=== PATIENT | female | born 1945 | race Caucasian/White ===

== ENCOUNTER → 2016-05-21 | Outpatient (CLI) | payer OTHER ==
[~2016-05-21] MED LIST: ACETAMINOPHN-T1 EACH PO; ACTONEL35 MG PO; AGGRENOX1 CAPSULE PO; Aggrenox PO; COREG CR10 MG PO; COUMADIN,JANTOVE1 MG PO; CRESTOR20 MG PO; Ceftin PO; DEXAMETHASONE4 MG PO; ENABLEX7.5 MG PO; ENDOCET 5-3251 EACH PO; FENTANYL1 EAC5 TD; FLORICET PO; JANUMET 50/11 TABLET PO; LEXAPRO20 MG PO; LYRICA50 MG PO; NORCO 5/3251 TABLET PO; Nitrostat,NitroQuick SL; OXYCONTIN10 MG PO; PERCOCET 5/31 TABLET PO; PLATEL PO; PLETAL50 M2 PO; PLETAL50 MG PO; PROVENTIL,2.5 MG/0.5 IH; PROVENTIL,2.5 MG/3 M IH; PYRIDOXINE,VIT100 MG PO; Pletal PO; Reglan PO; SEROQUEL200 MG PO; Tylenol Regular Stre PO; Ultracet PO; VESICARE5 MG PO; VICODIN,LORT1 TABLET PO; VITAMIN B CO1 TABLET PO; Vitamin B Complex PO; Vitamin B-12 PO; ZANAFLEX2 M1 PO; ZANAFLEX4 MG PO; ZETIA10 MG PO
[2016-05-21 10:54] LABS: POINT-OF-CARE METER ID UU14174212
== END | disposition home or self-care (01) ==
LOC: OPR 09:50 → EDSTATUS 10:00 → OPR 10:00
PROVIDERS: Internal Medicine Hematology & Oncology
PROC: 0BBF3ZX Excision of Right Lower Lung Lobe, Percutaneous Approach, Diagnostic (ICD-10-PCS; principal; 2016-05-21)
DX: R91.8 Other nonspecific abnormal finding of lung field (principal); I25.10 Atherosclerotic heart disease of native coronary artery without angina pectoris; Z95.1 Presence of aortocoronary bypass graft
CPT/HCPCS: 71010; 77012; 82948; 88305; 88341 TC; 88342 TC; J3010

== ENCOUNTER → 2016-06-18 | Outpatient (CLI) | payer OTHER ==
[~2016-06-18] MED LIST changes: +FENTANYL1 EAC1 TD; +OXAYDO5 MG PO
[2016-06-18 09:27] LABS: HEMATOCRIT 52.5 % (36.0-46.0); MCH 30.4 PG (29.0-34.0); MCHC 34.5 G/DL (30.0-36.0); MCV 88.2 FL (83-99); MEAN PLAT.VOLUME 9.9 uM^3 (9.5-12.4); PLATELET COUNT 97 K/uL (156-360); RBC DIS.WIDTH-CV 16.6 % (11.8-14.6); RBC DIS.WIDTH-SD 52.6 % (39-53); RED BLOOD COUNT 5.95 M/uL (3.80-5.20)
[2016-06-18 09:40] LABS: INTER. NORMALIZED RATIO 1.1; PROTHROMBIN TIME 10.9 (9.2-11.2); PTT 27.3 (25-32)
== END | disposition home or self-care (01) ==
LOC: EDSTATUS 08:45 → OPR 08:45
PROVIDERS: Internal Medicine Hematology & Oncology
PROC: 0BBF3ZX Excision of Right Lower Lung Lobe, Percutaneous Approach, Diagnostic (ICD-10-PCS; principal; 2016-06-18)
DX: R91.8 Other nonspecific abnormal finding of lung field (principal)
CPT/HCPCS: 71010; 77012; 85027; 85610; 85730; 88305; J3010

== ENCOUNTER 2016-06-22 15:20 | Inpatient (IN) | payer OTHER ==
[~2016-06-22] VITALS: Ht 170.2 cm; Wt 83.0 kg
[2016-06-22 15:36] LABS: BASE EXCESS -3.5 mEq/L (-3 to +3); BICARBONATE 18.5 mEq/L (22-26); CARBOXY HGB 1.9 % (0-5); COMMENTS - BLOOD GASES C+A+; DEVICE NRBM; METHEMOGLOBIN 1.3 % (0-1.5); O2 FLOW 15 L/MIN; PCO2 26 mm Hg (35-45); PO2 104 mm Hg (80-100); SITE RR; pH 7.46 (7.35-7.45)
[2016-06-22 16:19] LABS: CHLORIDE 98 mEq/L (99-109); POTASSIUM 4.2 mEq/L (3.7-5.4); SODIUM 135 mEq/L (136-147)
[2016-06-22 16:20] LABS: GLUCOSE 137 mg/dL (70-99)
[2016-06-22 16:22] LABS: ANION GAP 18 MEQ/L (2-14)
[2016-06-22 16:24] LABS: GFR ESTIMATE (CALCULATED) 34 mL/min/
[2016-06-22 16:25] LABS: UREA NITROGEN (BUN) 40 mg/dL (9-23)
[2016-06-22 16:32] LABS: TROP-I INTERPRETATION NEGATIVE; TROPONIN-I 0.01 ng/mL (0.0-0.30)
[2016-06-22 16:41] LABS: HEMATOCRIT 46.4 % (36.0-46.0); HEMATOLOGY COMMENT 1 SMEAR COMPATIBLE; IMMATURE GRANULOCYTE (%) 0.5 % (0.0-0.7); LYMPHOCYTE COUNT 0.3 K/uL (1.0-2.8); MCHC 34.9 G/DL (30.0-36.0); MEAN PLAT.VOLUME 10.7 uM^3 (9.5-12.4); MONOCYTE (%) 11.4 % (3-12); MONOCYTE COUNT 0.5 K/uL (0-0.8); NEUTROPHIL (%) 79.7 % (45-76); NEUTROPHIL COUNT 3.2 K/uL (1.8-6.4); PLAT.SUFFICIENCY DECREASED; PLATELET COUNT 78 K/uL (156-360); RBC DIS.WIDTH-CV 16.4 % (11.8-14.6); RED BLOOD COUNT 5.58 M/uL (3.80-5.20)
[2016-06-22 16:52] LABS: MCV 83.2 FL (83-99); WHITE BLOOD COUNT 4.1 K/uL (4.1-10.2)
[2016-06-22] MEDS ORDERED: CILOSTAZOL100 MG PO (19:52)
[2016-06-22] MEDS ORDERED: ZANTAC150 MG PO (19:57)
[2016-06-22] MEDS ORDERED: NAMENDA10 MG PO (19:58)
[2016-06-22 22:00] VITALS: BP 101/58
[2016-06-22 23:27] LABS: ADD MIUA? YES; BILIRUBIN NEGATIVE; BLOOD LARGE; COLOR AMBER ((YELLOW)); GLUCOSE (STRIP) NEGATIVE; KETONES NEGATIVE; LEUKOCYTES NEGATIVE; NITRITE NEGATIVE; PROTEIN (STRIP) 100; SPECIFIC GRAVITY 1.018 (1.000-1.030); UROBILINOGEN 0.2 MG/DL (0.2-1.0)
[2016-06-22 23:37] VITALS: BP 138/63
[2016-06-22 23:39] LABS: BACTERIA 3+ /HPF; EPITHELIAL CELLS RARE /HPF; MUCUS 1+ /LPF; RED BLOOD CELLS 0-5 /HPF (0-5); UCUL ADDED? NO; WHITE BLOOD CELLS 0-5 /HPF (0-5)
[2016-06-23 04:12] VITALS: BP 110/55
[2016-06-23 12:00] LABS: HEMATOCRIT 39.8 % (36.0-46.0); MCH 28.5 PG (29.0-34.0); MCHC 33.4 G/DL (30.0-36.0); MCV 85.4 FL (83-99); RBC DIS.WIDTH-CV 16.4 % (11.8-14.6); RBC DIS.WIDTH-SD 50.3 % (39-53); RED BLOOD COUNT 4.66 M/uL (3.80-5.20); WHITE BLOOD COUNT 3.7 K/uL (4.1-10.2)
[2016-06-23 12:29] LABS: ANION GAP 9 MEQ/L (2-14); CHLORIDE 101 MEQ/L (99-109); GLUCOSE 223 mg/dL (70-99); POTASSIUM 3.6 MEQ/L (3.7-5.4); SAMPLE HEMOLYSIS CHECK 0; SAMPLE ICTERIC CHECK 0; SAMPLE LIPEMIA CHECK 0; SODIUM 130 MEQ/L (136-147); UREA NITROGEN (BUN) 29 mg/dL (9-23)
[2016-06-23 12:30] LABS: GFR ESTIMATE (CALCULATED) 52 mL/min/
[2016-06-23 12:32] LABS: EOSINOPHIL (%) 0.3 % (0-5); HEMATOLOGY COMMENT 1 SMEAR COMPATIBLE; IMMATURE GRANULOCYTE (%) 1.6 % (0.0-0.7); IMMATURE GRANULOCYTE COUNT 0.1 K/uL; LYMPHOCYTE COUNT 0.3 K/uL (1.0-2.8); MEAN PLAT.VOLUME 10.8 uM^3 (9.5-12.4); MONOCYTE (%) 0.5 % (3-12); NEUTROPHIL (%) 90.3 % (45-76); NEUTROPHIL COUNT 3.3 K/uL (1.8-6.4); PLAT.SUFFICIENCY DECREASED; PLATELET COUNT 58 K/uL (156-360); USER ID TLW
[2016-06-23 12:43] VITALS: BP 101/56
[2016-06-23 16:00] VITALS: BP 102/54
[2016-06-23 19:20] VITALS: BP 112/59
[2016-06-23 23:41] VITALS: BP 106/51
[2016-06-24 04:15] VITALS: BP 112/58
[2016-06-24 06:37] LABS: HEMATOCRIT 42.6 % (36.0-46.0); MCH 28.6 PG (29.0-34.0); MCHC 33.8 G/DL (30.0-36.0); MCV 84.5 FL (83-99); MEAN PLAT.VOLUME 10.7 uM^3 (9.5-12.4); PLATELET COUNT 54 K/uL (156-360); RBC DIS.WIDTH-CV 16.3 % (11.8-14.6); RBC DIS.WIDTH-SD 49.6 % (39-53); RED BLOOD COUNT 5.04 M/uL (3.80-5.20); WHITE BLOOD COUNT 3.5 K/uL (4.1-10.2)
[2016-06-24 06:51] LABS: ANION GAP 12 MEQ/L (2-14); CHLORIDE 100 MEQ/L (99-109); GFR ESTIMATE (CALCULATED) > 59 mL/min/; GLUCOSE 135 mg/dL (70-99); SAMPLE HEMOLYSIS CHECK 0; SAMPLE ICTERIC CHECK 0; SAMPLE LIPEMIA CHECK 0; SODIUM 133 MEQ/L (136-147); UREA NITROGEN (BUN) 23 mg/dL (9-23)
[2016-06-24 07:15] VITALS: BP 101/58
[2016-06-24 07:28] LABS: BASE EXCESS -1.6 mEq/L (-3 to +3); BICARBONATE 21.5 mEq/L (22-26); CARBOXY HGB 1.8 % (0-5); METHEMOGLOBIN 1.4 % (0-1.5); PCO2 31 mm Hg (35-45); PO2 113 mm Hg (80-100); pH 7.45 (7.35-7.45)
[2016-06-24 07:29] LABS: COMMENTS - BLOOD GASES A+C+; DEVICE NRBM; FI02 100 %; O2 FLOW 15 L/MIN; SITE RR
[2016-06-24 07:43] LABS: POINT-OF-CARE USER ID NUTSLF44
[2016-06-24 07:51] LABS: ABS NEUTROPHIL COUNT 3.25; ANISOCYTOSIS 1+; DELETE MACHINE DIFF? YES; MACROCYTES OCC; PLAT.SUFFICIENCY DECREASED; TARGET CELLS RARE; TEAR DROP CELLS OCC; USER ID TLW
[2016-06-24 07:52] LABS: GIANT PLATELETS RARE
[2016-06-24 11:51] LABS: POINT-OF-CARE USER ID NUTSLF44
[2016-06-24 12:19] VITALS: BP 82/52
[2016-06-24 15:53] VITALS: BP 114/57
[2016-06-24 19:20] VITALS: BP 106/57
[2016-06-25 00:20] VITALS: BP 128/68
[2016-06-25 04:20] VITALS: BP 95/51
[2016-06-25 06:53] LABS: HEMATOCRIT 36.8 % (36.0-46.0); MCH 29.3 PG (29.0-34.0); MCHC 34.8 G/DL (30.0-36.0); MCV 84.2 FL (83-99); MEAN PLAT.VOLUME 11.6 uM^3 (9.5-12.4); PLATELET COUNT 61 K/uL (156-360); RBC DIS.WIDTH-CV 16.2 % (11.8-14.6); RBC DIS.WIDTH-SD 49.5 % (39-53); RED BLOOD COUNT 4.37 M/uL (3.80-5.20)
[2016-06-25 07:23] LABS: ANION GAP 13 MEQ/L (2-14); CHLORIDE 99 MEQ/L (99-109); GFR ESTIMATE (CALCULATED) > 59 mL/min/; GLUCOSE 130 mg/dL (70-99); POTASSIUM 3.8 MEQ/L (3.7-5.4); SAMPLE HEMOLYSIS CHECK 0; SAMPLE ICTERIC CHECK 0; SAMPLE LIPEMIA CHECK 0; SODIUM 132 MEQ/L (136-147); UREA NITROGEN (BUN) 22 mg/dL (9-23)
[2016-06-25 07:49] LABS: HEMATOLOGY COMMENT 1 SMEAR COMPATIBLE; USER ID BLP
[2016-06-25 07:50] LABS: EOSINOPHIL (%) 0 % (0-5); IMMATURE GRANULOCYTE (%) 1.8 % (0.0-0.7); IMMATURE GRANULOCYTE COUNT 0.1 K/uL; LYMPHOCYTE COUNT 0.2 K/uL (1.0-2.8); MONOCYTE COUNT 0.1 K/uL (0-0.8); NEUTROPHIL (%) 90.1 % (45-76); NEUTROPHIL COUNT 3.6 K/uL (1.8-6.4)
[2016-06-25 08:00] VITALS: BP 123/66
[2016-06-25 08:02] LABS: POINT-OF-CARE METER ID UU14174216
[2016-06-25 11:32] VITALS: BP 119/58
[2016-06-25 12:39] LABS: POINT-OF-CARE METER ID UU14174216
[2016-06-25 16:28] VITALS: BP 120/58
[2016-06-25 16:57] LABS: POINT-OF-CARE METER ID UU13113781
[2016-06-25 19:20] VITALS: BP 103/56
[2016-06-26 00:20] VITALS: BP 110/59
[2016-06-26 04:00] VITALS: BP 119/53
[2016-06-26 07:02] VITALS: BP 100/55
[2016-06-26 11:48] VITALS: BP 109/58
[2016-06-26 16:46] VITALS: BP 134/72
[2016-06-26 21:00] VITALS: BP 105/55
[2016-06-27] VITALS (7 sets, daily range): BP systolic 73–137; BP diastolic 50–73
[2016-06-27 07:21] LABS: HEMATOCRIT 38.1 % (36.0-46.0); MCH 29.9 PG (29.0-34.0); MCHC 35.7 G/DL (30.0-36.0); MCV 83.7 FL (83-99); RBC DIS.WIDTH-CV 16.2 % (11.8-14.6); RBC DIS.WIDTH-SD 49.1 % (39-53); RED BLOOD COUNT 4.55 M/uL (3.80-5.20); WHITE BLOOD COUNT 4.1 K/uL (4.1-10.2)
[2016-06-27 07:43] LABS: ANION GAP 14 MEQ/L (2-14); CHLORIDE 96 MEQ/L (99-109); GFR ESTIMATE (CALCULATED) > 59 mL/min/; GLUCOSE 117 mg/dL (70-99); POTASSIUM 3.5 MEQ/L (3.7-5.4); SAMPLE HEMOLYSIS CHECK 0; SAMPLE ICTERIC CHECK 0; SAMPLE LIPEMIA CHECK 0; SODIUM 133 MEQ/L (136-147); UREA NITROGEN (BUN) 17 mg/dL (9-23)
[2016-06-27 07:57] LABS: POINT-OF-CARE METER ID UU13113698; POINT-OF-CARE USER ID ENVKC36
[2016-06-27 08:32] LABS: ABS NEUTROPHIL COUNT 3.73; ANISOCYTOSIS OCC; EOSINOPHIL (%) 0.2 % (0-5); IMMATURE GRANULOCYTE (%) 6.5 % (0.0-0.7); IMMATURE GRANULOCYTE COUNT 0.3 K/uL; LYMPHOCYTE COUNT 0.3 K/uL (1.0-2.8); MEAN PLAT.VOLUME 11.6 uM^3 (9.5-12.4); MONOCYTE (%) 3.9 % (3-12); MONOCYTE COUNT 0.2 K/uL (0-0.8); NEUTROPHIL (%) 82.4 % (45-76); NEUTROPHIL COUNT 3.4 K/uL (1.8-6.4); PLAT.SUFFICIENCY DECREASED; PLATELET COUNT 47 K/uL (156-360); USER ID CL
[2016-06-27 11:43] LABS: POINT-OF-CARE USER ID ENVKC36
[2016-06-27 16:49] LABS: POINT-OF-CARE USER ID ENVKC36
[2016-06-28] VITALS (8 sets, daily range): BP systolic 75–141; BP diastolic 52–81
[2016-06-28 07:51] LABS: ANION GAP 12 MEQ/L (2-14); CHLORIDE 97 MEQ/L (99-109); GFR ESTIMATE (CALCULATED) > 59 mL/min/; GLUCOSE 107 mg/dL (70-99); POTASSIUM 3.7 MEQ/L (3.7-5.4); SAMPLE HEMOLYSIS CHECK 0; SAMPLE ICTERIC CHECK 0; SAMPLE LIPEMIA CHECK 0; SODIUM 128 MEQ/L (136-147); UREA NITROGEN (BUN) 13 mg/dL (9-23)
[2016-06-28 08:09] LABS: POINT-OF-CARE METER ID UU14174216; POINT-OF-CARE USER ID NUTSLF44
[2016-06-28 11:27] LABS: POINT-OF-CARE USER ID NUTSLF44
[2016-06-28 17:49] LABS: POINT-OF-CARE USER ID NUTSLF44
[2016-06-29 01:52] LABS: POINT-OF-CARE METER ID UU13113725
[2016-06-29 03:03] VITALS: BP 114/60
[2016-06-29 06:07] LABS: POINT-OF-CARE METER ID UU13113725
[2016-06-29 07:02] LABS: HEMATOCRIT 36.4 % (36.0-46.0); MCH 28.9 PG (29.0-34.0); MCHC 34.3 G/DL (30.0-36.0); MCV 84.1 FL (83-99); RBC DIS.WIDTH-CV 15.9 % (11.8-14.6); RBC DIS.WIDTH-SD 48.5 % (39-53); RED BLOOD COUNT 4.33 M/uL (3.80-5.20); WHITE BLOOD COUNT 4.2 K/uL (4.1-10.2)
[2016-06-29 07:24] LABS: ANION GAP 13 MEQ/L (2-14); CHLORIDE 95 MEQ/L (99-109); GFR ESTIMATE (CALCULATED) > 59 mL/min/; GLUCOSE 92 mg/dL (70-99); POTASSIUM 3.3 MEQ/L (3.7-5.4); SAMPLE HEMOLYSIS CHECK 0; SAMPLE ICTERIC CHECK 0; SAMPLE LIPEMIA CHECK 0; SODIUM 129 MEQ/L (136-147); UREA NITROGEN (BUN) 9 mg/dL (9-23)
[2016-06-29 07:40] LABS: ABS NEUTROPHIL COUNT 4.05; ANISOCYTOSIS 1+; EOSINOPHIL (%) 0.5 % (0-5); IMMATURE GRANULOCYTE COUNT 0.3 K/uL; LYMPHOCYTE COUNT 0.3 K/uL (1.0-2.8); MONOCYTE (%) 3.3 % (3-12); MONOCYTE COUNT 0.1 K/uL (0-0.8); NEUTROPHIL COUNT 3.4 K/uL (1.8-6.4); OVALOCYTES RARE; PLAT.SUFFICIENCY DECREASED; PLATELET COUNT UNABLE TO REPORT K/uL (156-360); SPHEROCYTES RARE; TOXIC GRANULATION 1+
[2016-06-29 08:01] VITALS: BP 122/72
[2016-06-29 19:20] LABS: POINT-OF-CARE METER ID UU13113725
[2016-06-29 19:28] VITALS: BP 92/64
[2016-06-29 21:21] LABS: POINT-OF-CARE METER ID UU13113725
[2016-06-29 22:54] VITALS: BP 94/54
[2016-06-30 03:31] VITALS: BP 105/69
[2016-06-30 06:23] LABS: POINT-OF-CARE METER ID UU13113725
[2016-06-30 08:10] VITALS: BP 99/65
[2016-06-30 11:51] VITALS: BP 156/77
[2016-06-30 16:34] LABS: POINT-OF-CARE METER ID UU13113725
[2016-06-30 16:43] VITALS: BP 127/71
[2016-06-30 19:15] VITALS: BP 114/58
[2016-06-30 23:11] VITALS: BP 150/71
[2016-07-01 03:51] VITALS: BP 141/66
[2016-07-01 06:50] LABS: HEMATOCRIT 33.6 % (36.0-46.0); MCH 29.3 PG (29.0-34.0); MCHC 34.2 G/DL (30.0-36.0); MCV 85.5 FL (83-99); RBC DIS.WIDTH-CV 16.2 % (11.8-14.6); RBC DIS.WIDTH-SD 50.9 % (39-53); RED BLOOD COUNT 3.93 M/uL (3.80-5.20); WHITE BLOOD COUNT 5.1 K/uL (4.1-10.2)
[2016-07-01 07:25] VITALS: BP 117/65
[2016-07-01 07:26] LABS: ALKALINE PHOSPHATASE 116 IU/L (3-129); ANION GAP 12 MEQ/L (2-14); CHLORIDE 102 MEQ/L (99-109); GFR ESTIMATE (CALCULATED) > 59 mL/min/; GLUCOSE 118 mg/dL (70-99); POTASSIUM 3.9 MEQ/L (3.7-5.4); SAMPLE HEMOLYSIS CHECK 0; SAMPLE ICTERIC CHECK 0; SAMPLE LIPEMIA CHECK 0; SODIUM 132 MEQ/L (136-147); TOTAL BILIRUBIN 0.6 MG/DL (0.0-1.0); UREA NITROGEN (BUN) 9 mg/dL (9-23)
[2016-07-01 07:54] LABS: HEMATOLOGY COMMENT 1 MCB
[2016-07-01 12:28] LABS: POINT-OF-CARE METER ID UU13113725
[2016-07-01 15:26] VITALS: BP 142/75
[2016-07-01 19:25] VITALS: BP 109/57
[2016-07-01 21:20] LABS: POINT-OF-CARE METER ID UU13113725
[2016-07-01 23:10] VITALS: BP 126/65
[2016-07-02 08:00] VITALS: BP 116/72
[2016-07-02 11:50] LABS: POINT-OF-CARE METER ID UU13113725
[2016-07-02 15:39] VITALS: BP 91/60
== END 2016-07-02 15:30 | DRG 689 ==
LOC: EME 15:20 → 5EAST 19:40 → 4EAST 19:40 → EDOF 19:40 → 4EAST 21:54 → 5EAST 06-28 21:37
PROVIDERS: Emergency Medicine; Family Medicine
DX: N39.0 Urinary tract infection, site not specified (principal); J18.9 Pneumonia, unspecified organism; J96.01 Acute respiratory failure with hypoxia; G93.40 Encephalopathy, unspecified; E87.2 Acidosis; C79.31 Secondary malignant neoplasm of brain; C79.51 Secondary malignant neoplasm of bone; F05 Delirium due to known physiological condition; K56.7 Ileus, unspecified; J44.0 Chronic obstructive pulmonary disease with (acute) lower respiratory infection; J44.1 Chronic obstructive pulmonary disease with (acute) exacerbation; T40.602A Poisoning by unspecified narcotics, intentional self-harm, initial encounter; R41.89 Other symptoms and signs involving cognitive functions and awareness; C34.91 Malignant neoplasm of unspecified part of right bronchus or lung; E11.9 Type 2 diabetes mellitus without complications; E78.5 Hyperlipidemia, unspecified; E78.1 Pure hyperglyceridemia; R80.9 Proteinuria, unspecified; I25.10 Atherosclerotic heart disease of native coronary artery without angina pectoris; I65.29 Occlusion and stenosis of unspecified carotid artery; Z86.73 Personal history of transient ischemic attack (TIA), and cerebral infarction without residual deficits; Z99.81 Dependence on supplemental oxygen; F41.9 Anxiety disorder, unspecified; M81.0 Age-related osteoporosis without current pathological fracture; M54.10 Radiculopathy, site unspecified; K21.9 Gastro-esophageal reflux disease without esophagitis; E87.6 Hypokalemia; E87.1 Hypo-osmolality and hyponatremia; D69.6 Thrombocytopenia, unspecified; Z66 Do not resuscitate; I70.218 Atherosclerosis of native arteries of extremities with intermittent claudication, other extremity; I95.1 Orthostatic hypotension; G60.9 Hereditary and idiopathic neuropathy, unspecified; I70.0 Atherosclerosis of aorta; Z92.3 Personal history of irradiation; Z51.5 Encounter for palliative care; I70.92 Chronic total occlusion of artery of the extremities; F17.210 Nicotine dependence, cigarettes, uncomplicated; R32 Unspecified urinary incontinence
CPT/HCPCS: 36600; 70450; 71010; 74022; 74176; 80048; 80053; 81003; 82803; 82948; 83605; 83880; 84484; 85025; 85027; 85730; 87040; 87077; 87086; 87186; 93005; 93925; 93978; 94640; 94640 76; 94760; 94799; 97530 GP; 99202; 99281; 99285; J0456; J0696; J1100; J1815; J1940; J2310; J2543; J2765; J3480; J7050; J8540

== ENCOUNTER 2016-07-02 15:45 | Inpatient (IN) | payer OTHER ==
[~2016-07-02 15:45] MED LIST changes: +CILOSTAZOL100 MG PO; +NAMENDA10 MG PO; +ZANTAC150 MG PO
[2016-07-03 16:00] VITALS: BP 123/69
[2016-07-05 12:22] VITALS: BP 00/00
[2016-07-05] MEDS ORDERED: CILOSTAZOL100 MG PO (13:01)
[2016-07-05] MEDS ORDERED: TORADOL10 MG PO (13:02)
[2016-07-05] MEDS ORDERED: TORADOL IM (13:03)
[2016-07-05] MEDS ORDERED: LORAZEPAM0.5 MG SL (13:04)
[2016-07-05] MEDS ORDERED: NIZORAL 2% CREA15 GM TP (13:13)
== END 2016-07-05 16:08 | disposition hospice, home (50) | DRG 180 ==
LOC: 5EAST 15:45
DX: C34.31 Malignant neoplasm of lower lobe, right bronchus or lung (principal); Z51.5 Encounter for palliative care; Z66 Do not resuscitate; C79.31 Secondary malignant neoplasm of brain; C79.51 Secondary malignant neoplasm of bone; G93.40 Encephalopathy, unspecified; E11.9 Type 2 diabetes mellitus without complications; E78.5 Hyperlipidemia, unspecified; E78.1 Pure hyperglyceridemia; I25.10 Atherosclerotic heart disease of native coronary artery without angina pectoris; I73.9 Peripheral vascular disease, unspecified; J44.9 Chronic obstructive pulmonary disease, unspecified; K21.9 Gastro-esophageal reflux disease without esophagitis; F41.9 Anxiety disorder, unspecified; B37.2 Candidiasis of skin and nail; Z86.73 Personal history of transient ischemic attack (TIA), and cerebral infarction without residual deficits
CPT/HCPCS: 94640 76; 94760; 94799; 99202; C9113; J1100; J1885; J2765; Q0167